=== PATIENT | male | born 1965 | race Caucasian/White ===

== ENCOUNTER → 2019-09-18 07:44 | Outpatient (BNVA) | payer MEDICARE, BC, SELFPAY | PROVIDERS: Family Provider Family Medicine; PCP Family Medicine; Visit Provider Specialist | DX: F34.9 Persistent mood [affective] disorder, unspecified (principal); M54.9 Dorsalgia, unspecified; Z87.891 Personal history of nicotine dependence | CPT/HCPCS: 99213 ==